=== PATIENT | male | born 1960 | race African-American/Black ===

== ENCOUNTER 2018-01-23 11:04 | Emergency (ER) | payer MEDICARE ==
[~2018-01-23] VITALS: Ht 185.4 cm; Wt 75.0 kg
[~2018-01-23 11:04] MED LIST: ALBU18HF2 IH; METFORMIN PO
[2018-01-23 11:10] VITALS: BP 134/88
[2018-01-23] MEDS ORDERED: PREDNISONE 20MG TABLET PO STA (11:13)
[2018-01-23] MEDS ORDERED: ALBUTEROL (0.083%) 2.5MG/3ML NEB HHN STA (11:13)
[2018-01-23] MEDS ORDERED: IPRATROPIUM BROMIDE (0.02%) 0.5MG/2.5ML NEB HHN STA (11:13)
== END 2018-01-23 12:01 | disposition left against medical advice (07) ==
LOC: ER 11:04
DX: J44.1 Chronic obstructive pulmonary disease with (acute) exacerbation (principal); I11.0 Hypertensive heart disease with heart failure; I50.9 Heart failure, unspecified; E11.9 Type 2 diabetes mellitus without complications; F17.200 Nicotine dependence, unspecified, uncomplicated; Z79.84 Long term (current) use of oral hypoglycemic drugs
CPT/HCPCS: 99283